=== PATIENT | female | born 1965 | race Caucasian/White ===

== ENCOUNTER 2022-01-13 07:52 | Day surgery (SDC) | payer BC, SELFPAY ==
[2022-01-07 20:22] VITALS: BMI 33.5
[2022-01-13 08:07] VITALS: BP 115/64; PULSE 88; RESP 16; TEMP 36.8; O2SAT 96
--- NOTE | 2022-01-13 08:11 | P.CONAN_ITS ---
HPI - Anesthesia Eval Consult details Narrative: 56 yo female patient for colonoscopy [facility] Past Medical History Medical History Anxiety Arthritis of knee, right Diverticulitis Paroxysmal atrial tachycardia Family History Family history of problems with anesthesia: No Surgical History Surgical History History of open reduction and internal fixation (ORIF) procedure History of total splenectomy Hx of colonoscopy Hx of right knee surgery Pacemaker History of Problems with Anesthesia: No Social History Social History Household Members: Spouse Housing: House Are you a primary career guidance technician to a significant other at home: No Do you presently have visiting nurse or other home services: No Patient Tobacco Use Status: Never used Tobacco Use of substances other than those prescribed or required for medical reasons: No Are you DNR?: No Advance Directives: No Advance Directives Information Provided: Yes Current occupational status: employed Meds Allergies Allergy/AdvReac Type Severity Reaction Status Date / Time No Known Allergies Allergy Verified 01/13/22 08:02 [No Known Allergies*] Active Medications: Current Medications Lactated Ringer's (Lr) 1,000 mls @ 100 mls/hr IVCONT .Q10H [facility] Home Medications Medication Instructions Recorded Confirmed Last Taken Type acetaminophen 650 mg tablet 650 mg PO Q6H PRN Pain 01/07/22 01/07/22 Unknown History duloxetine 30 mg capsule,delayed 30 mg PO BEDTIME 01/07/22 01/08/22 Unknown History release metoprolol succinate 25 mg 25 mg PO DAILY 01/07/22 01/07/22 Unknown History tablet,extended release 24 hr multivitamin 1 tab PO DAILY 01/08/22 01/08/22 Unknown History zolpidem 10 mg tablet 10 mg PO BEDTIME PRN Sleep 01/08/22 01/08/22 Unknown H istory Exam Exam Date and Time: January 13, 2022 0811 Height,Weight and Vital Signs: Height 5 ft 4 in Weight 88.451 kg Vital Signs Temp Pulse Resp BP Pulse Ox O2 Del Method 01/13/22 08:07 98.2 F 88 16 115/64 96 Room Air Airway Mallampati Class: II TM Dist: >3cm Neck ROM: Full Loose/Missing/Broken Teeth: No Heart: RRR Lungs: CTAB Assessment and Plan Assessment Anesthesia Assessment: Anesthesia Plan Discussed and Chart Reviewed Final Anesthetic Review Family History of Problems with Anesthesia: No History of Problems with Anesthesia: No NPO: Yes ASA Class: III Final Preanesthetic Review: No Changes in Pt Med Stat, Meds/Allgs Chart Reviewed, Consent Obtained/Reviewed and Anes Risks/Benef Reviewed Patient Risk: Low Procedure Risk: Low Assessment/Block/Sedation in SS: Assess/Block/Sedation-SS Anesthetic Plan Anesthetic Plan: MAC: Disposition: Standard PACU
[2022-01-13] MEDS: Lactated Ringers 1,000 ML 100 ML IVCONT (08:20)
--- NOTE | 2022-01-13 08:55 | MHC.SHP ---
Pre-Procedural Eval Section A Date of Service: 01/13/22 Section B Chief Complaint: hx malignant neoplasm,diverticulitis Details of Present Illness: see H*P no changes Relevant Family History (Specify if Yes): No Relevant Social History: None Present Medications: see Short Stay Collaborative assessment Medical History: No relevant PMH History of Previous Operations: No relevant previous surgery Allergies: Allergies Allergy/AdvReac Type Severity Reaction Status Date / Time No Known Allergies Allergy Verified 01/13/22 08:02 [No Known Allergies*] Review of Systems Sugical H&P ROS: Negative: Constitution, Cardiovascular, Respiratory, Neurological, Psychiatric, Hem-Onc, Allergic/Immunologic, Gastrointestinal, Genitourinary, Musculoskeletal, Integumentary, Endocrine and Eyes/Ears/Nose/Throat Exam Surgical H&P Exam: Normal: HEENT, Normal: Heart, Normal: Lungs, Normal: Extremities, Normal: Abdomen, Normal: Skin and Normal: Neurological Plan Diagnosis/Plan: Unchanged I have reviewed the history and physical and performed a pertinent physical examination on my patient. No changes have occurred unless specified.
--- NOTE | 2022-01-13 09:29 | PM.OP ---
Brief Operative Note Date of Service: 01/13/22 Pre-op diagnosis: diverticulitis screening Post-op diagnosis: same Procedure: colo Surgeon: Gilmer Byrne Anesthesia: MAC Was an Cardiology Specialist used for this Procedure?: No Estimated blood loss (mL): 0 Pathology: none sent Condition: stable Disposition: PACU
[2022-01-13 09:30] VITALS: BP 114/68; PULSE 75; RESP 16; TEMP 36.3; O2SAT 95
[2022-01-13 09:45] VITALS: BP 125/71; PULSE 62; RESP 16; TEMP 36.3; O2SAT 97
--- NOTE | 2022-01-13 13:43 | OP_ITS ---
SURGEON: Gilmer Byrne MD INDICATIONS: Diverticulitis and family history of colon cancer. PREOPERATIVE DIAGNOSIS: POSTOPERATIVE DIAGNOSIS: PROCEDURE PERFORMED: Colonoscopy to the terminal ileum on 01/13/22. ESTIMATED BLOOD LOSS: COMPLICATIONS: ANESTHESIA: Monitored anesthesia care. ASSISTANTS: SPECIMENS: DESCRIPTION OF PROCEDURE: History and physical performed the risks and benefits of the procedure were explained to the patient. Informed consent was obtained. The patient was placed in the left lateral decubitus position. A digital rectal exam was performed and was found to be normal. The Olympus pediatric video colonoscope was introduced into the rectum and advanced to the cecum without difficulty. The cecum was identified by transillumination, palpation, and identification of the ileocecal valve. Examination was performed. The scope was removed. She tolerated the procedure well returned to the recovery area in stable condition. FINDINGS: The terminal ileum was examined and appeared normal. The visualized colonic mucosa was normal. The quality of the prep was good. In the right colon and cecum, there was some stool coating mucosa. This did limit sensitivity examination for detection of small polyps. No polyps were identified. There was mild sigmoid diverticulosis. Retroflexed examination showed some small internal hemorrhoids. IMPRESSION: Normal colonoscopy. RECOMMENDATION: 1. Follow up as needed. 2. Repeat is recommended in 5 years for family history. MD CALEB Canchola/BE / [id number] MTDD
== END 2022-01-13 10:18 | disposition home or self-care (01) ==
PROVIDERS: PCP Internal Medicine; Visit Provider Internal Medicine Gastroenterology
PROC: 0DJD8ZZ Inspection of Lower Intestinal Tract, Via Natural or Artificial Opening Endoscopic (ICD-10-PCS; CPT 45378; principal; 2022-01-13 09:00)
DX: K57.30 Diverticulosis of large intestine without perforation or abscess without bleeding (principal); Z80.0 Family history of malignant neoplasm of digestive organs; K64.8 Other hemorrhoids; I47.1 Supraventricular tachycardia; Z95.0 Presence of cardiac pacemaker; F41.1 Generalized anxiety disorder; Z90.81 Acquired absence of spleen; Z79.899 Other long term (current) drug therapy
CPT/HCPCS: 45378